=== PATIENT | female | born 1955 ===

== ENCOUNTER → 2023-07-12 06:30 | Day surgery (SDC) | payer OTHER, SELFPAY ==
[2023-07-12 08:29] LABS: Glucose - Point of Care 112 mg/dl (70-99)
== END ==
LOC: GI 06:30
PROVIDERS: ATTENDING PHYSICIAN Internal Medicine Gastroenterology
DX: Z12.11 Encounter for screening for malignant neoplasm of colon (principal); K62.89 Other specified diseases of anus and rectum
CPT/HCPCS: G0121; 82962

== ENCOUNTER 2025-04-26 06:05 | Day surgery (SDC) | payer OTHER, SELFPAY ==
[2025-04-22 11:08] LABS: Hematocrit 35.7 % (37.0-47.0); Hemoglobin 12.1 g/dL (12.0-16.0); Mean Corp Hgb Conc. 33.9 g/dL (33.0-37.0); Mean Corpuscular Volume 88.6 fL (81.0-99.0); Platelet Count 290 10^3/uL (130-400); Red Cell Dist. Width 11.9 % (11.5-14.5)
[2025-04-22 11:16] LABS: Blood Urea Nitrogen 15 mg/dl (7-17); Calcium 9.5 mg/dl (8.4-10.2); Carbon Dioxide 29 mmol/L (22-30); Chloride 100 mmol/L (98-107); Glucose 109 mg/dl (70-99); Potassium 4.6 mmol/L (3.5-5.1); Sodium 134 mmol/L (135-145); eGFR > 60.00
[2025-04-22 13:47] VITALS: BMI 22.6
[2025-04-26] VITALS (16 sets, daily range): BP systolic 114–136; BP diastolic 56–65; BMI 22.6
[2025-04-26 06:28] LABS: Glucose - Point of Care 111 mg/dl (70-99)
[2025-04-26] MEDS: NORMOSOL-R/PLASMALYTE-A 1000 IV (06:51)
[2025-04-26 09:41] LABS: Glucose - Point of Care 210 mg/dl (70-99)
[2025-04-26 09:47] LABS: Hematocrit 35.2 % (37.0-47.0); Hemoglobin 11.6 g/dL (12.0-16.0); Mean Corp Hgb Conc. 33.0 g/dL (33.0-37.0); Mean Corpuscular Volume 89.8 fL (81.0-99.0); Platelet Count 262 10^3/uL (130-400); Red Cell Dist. Width 12.0 % (11.5-14.5)
[2025-04-26] MEDS: NOVOLOG vial 2 UNITS SC (10:07)
[2025-04-26 12:11] LABS: Glucose - Point of Care 146 mg/dl (70-99)
[2025-04-26] MEDS: TYLENOL 650 MG PO (13:03)
== END 2025-04-26 13:10 | disposition home or self-care (01) ==
LOC: SDS 06:05
PROVIDERS: ATTENDING PHYSICIAN Obstetrics & Gynecology; FAMILY PHYSICIAN Family Medicine
DX: N81.3 Complete uterovaginal prolapse (principal); N95.8 Other specified menopausal and perimenopausal disorders; N39.3 Stress incontinence (female) (male)
CPT/HCPCS: 57282; 57260; 57288; 36415; 80048; 82962; 85027; 86850; 86900; 86901; 93005; A4648; C1771